=== PATIENT | male | born 1935 | race Caucasian/White ===

== ENCOUNTER 2019-06-02 18:04 | Emergency (ER) | payer MEDICARE, OTHER ==
[~2019-06-02] VITALS: Ht 182.9 cm; Wt 85.3 kg
[~2019-06-02 18:04] MED LIST: ASPI81EC; ASPI81EC PO; CALCAVITD PO; CETI5 PO; ERGO400 PO; EZET10; EZET10 PO; FELO2.5 PO; FISH1000 PO; Felodipine ER2.5 MG PO; GLUC500 PO; HYDACE5 PO; HYDCHL25 PO; Hytrin1 MG PO; LISHYD1012 PO; MULTI VITAMIN1 EACH PO; NADO20; NAPR550 PO; NEBI5 PO; NIAC500ER; NIAC500ER PO; NITR.4SL SL; Niacin PO; OMEP40CA12 PO; TERA5; TERA5 PO; WARF5 PO; WARF6; WARF6 PO; [UNRECOGNIZED DRUG - CODE] PO; [UNRECOGNIZED DRUG - OTHER] PO; [UNRECOGNIZED DRUG - OTHER] PO
[2019-06-02 18:49] LABS: BASOPHILS ABSOLUTE AUTO 0.07 K/mm3 (0.00-0.23); BASOPHILS PERCENT AUTO 1 % (0-2); EOSINOPHILS ABSOLUTE AUTO 0.14 K/mm3 (0.00-0.68); EOSINOPHILS PERCENT AUTO 2 % (0-6); Hematocrit 45.1 % (37.0-53.0); Hemoglobin 14.6 g/dL (13.5-17.5); IMMATURE GRAN ABSOLUTE AUTO 0.01 K/mm3 (0.00-0.10); IMMATURE GRAN PERCENT AUTO 0 % (0-1); LYMPHOCYTES ABSOLUTE AUTO 1.59 K/mm3 (0.84-5.20); LYMPHOCYTES PERCENT AUTO 25 % (21-46); MONOCYTES ABSOLUTE AUTO 0.82 K/mm3 (0.16-1.47); MONOCYTES PERCENT AUTO 13 % (4-13); Mean Corpuscular HGB 31.6 pg (26.0-34.0); Mean Corpuscular HGB Conc 32.4 g/dL (31.5-36.5); Mean Corpuscular Volume 98 fL (80-100); Mean Platelet Volume 11.5 fL (9.1-12.4); NEUTROPHILS ABSOLUTE AUTO 3.71 K/mm3 (1.96-9.15); NEUTROPHILS PERCENT AUTO 59 % (41-73); Platelet Count 159 K/mm3 (150-400); RDW Coefficient Variation 13.5 % (11.7-14.2); RDW Standard Deviation 49.2 fL (35.1-46.3); Red Blood Cell Count 4.62 M/mm3 (4.30-5.90); White Blood Cell Count 6.34 K/mm3 (4.00-11.30)
[2019-06-02 19:19] LABS: Anion Gap 6 mmol/L (6-16); Blood Urea Nitrogen 20 mg/dL (8-24); Bun/Creatinine Ratio 20.3 (12.0-20.0); CO2, Blood 26 mmol/L (21-32); Calcium, Blood 8.3 mg/dL (8.5-10.1); Chloride, Blood 107 mmol/L (98-108); Creatinine, Blood 0.99 mg/dL (0.60-1.20); Glomerular Filtration Rate >60 (60-); Glucose, Blood 164 mg/dL (70-99); Potassium, Blood 3.8 mmol/L (3.5-5.5); Sodium, Blood 139 mmol/L (136-145); Troponin I <0.015 ng/mL (0.000-0.040)
== END 2019-06-02 22:14 | disposition home or self-care (01) ==
LOC: ER 18:04
PROVIDERS: Physician Assistant
DX: R07.9 Chest pain, unspecified (principal); Z88.8 Allergy status to other drugs, medicaments and biological substances; Z79.899 Other long term (current) drug therapy; Z79.01 Long term (current) use of anticoagulants; I10 Essential (primary) hypertension; I48.91 Unspecified atrial fibrillation; Z87.891 Personal history of nicotine dependence
CPT/HCPCS: 36415; 71046; 71275; 80048; 84484; 85025; 93005; 93010; 99285-25; Q9967

== ENCOUNTER 2020-06-19 16:05 | Emergency (ER) | payer MEDICARE, OTHER ==
[~2020-06-19] VITALS: Ht 180.3 cm; Wt 87.1 kg
[2020-06-19 16:45] LABS: BASOPHILS ABSOLUTE AUTO 0.08 K/mm3 (0.00-0.23); BASOPHILS PERCENT AUTO 1 % (0-2); EOSINOPHILS ABSOLUTE AUTO 0.13 K/mm3 (0.00-0.68); EOSINOPHILS PERCENT AUTO 2 % (0-6); Hematocrit 48.7 % (37.0-53.0); Hemoglobin 15.7 g/dL (13.5-17.5); IMMATURE GRAN ABSOLUTE AUTO 0.01 K/mm3 (0.00-0.10); IMMATURE GRAN PERCENT AUTO 0 % (0-1); LYMPHOCYTES ABSOLUTE AUTO 1.74 K/mm3 (0.84-5.20); LYMPHOCYTES PERCENT AUTO 21 % (21-46); MONOCYTES ABSOLUTE AUTO 1.21 K/mm3 (0.16-1.47); MONOCYTES PERCENT AUTO 15 % (4-13); Mean Corpuscular HGB 31.3 pg (26.0-34.0); Mean Corpuscular HGB Conc 32.2 g/dL (31.5-36.5); Mean Corpuscular Volume 97 fL (80-100); Mean Platelet Volume 10.6 fL (9.1-12.4); NEUTROPHILS ABSOLUTE AUTO 5.12 K/mm3 (1.96-9.15); NEUTROPHILS PERCENT AUTO 62 % (41-73); Platelet Count 180 K/mm3 (150-400); RDW Coefficient Variation 14.3 % (11.7-14.2); RDW Standard Deviation 51.2 fL (35.1-46.3); Red Blood Cell Count 5.01 M/mm3 (4.30-5.90); White Blood Cell Count 8.29 K/mm3 (4.00-11.30)
[2020-06-19 16:58] LABS: Alanine Aminotransfer (ALT/SGP 23 U/L (12-78); Albumin, Blood 4.4 g/dL (3.4-5.0); Albumin/Globulin Ratio 1.1 (0.8-1.8); Alk Phos 61 U/L (50-136); Anion Gap 6 mmol/L (6-16); Aspartate Aminotrans (AST/SGOT 18 U/L (12-37); Bilirubin, Total 0.9 mg/dL (0.1-1.0); Blood Urea Nitrogen 13 mg/dL (8-24); Bun/Creatinine Ratio 14.3 (12.0-20.0); CO2, Blood 27 mmol/L (21-32); Calcium, Blood 8.8 mg/dL (8.5-10.1); Chloride, Blood 106 mmol/L (98-108); Creatinine, Blood 0.91 mg/dL (0.60-1.20); Globulin, Blood 3.9 g/dL (2.2-4.0); Glomerular Filtration Rate >60 (60-); Glucose, Blood 130 mg/dL (70-99); Potassium, Blood 3.3 mmol/L (3.5-5.5); Sodium, Blood 139 mmol/L (136-145); Total Protein, Blood 8.3 g/dL (6.4-8.2); Troponin I <0.015 ng/mL (0.000-0.040)
[2020-06-19] MEDS ORDERED: Aspir 8181 MG PO (18:36)
[2020-06-19] MEDS ORDERED: METO25ER PO (18:37)
[2020-06-19] MEDS ORDERED: PANT40 PO (18:38)
[2020-06-19 20:12] LABS: Magnesium, Blood 2.6 mg/dL (1.6-2.4); Troponin I <0.015 ng/mL (0.000-0.040)
== END 2020-06-19 22:00 | disposition home or self-care (01) ==
LOC: ER 16:05
PROVIDERS: Emergency Medicine; Physician Assistant
DX: R07.0 Pain in throat (principal); I10 Essential (primary) hypertension; I48.91 Unspecified atrial fibrillation; E78.00 Pure hypercholesterolemia, unspecified; I25.810 Atherosclerosis of coronary artery bypass graft(s) without angina pectoris; Z79.01 Long term (current) use of anticoagulants; Z79.899 Other long term (current) drug therapy; Z88.6 Allergy status to analgesic agent; Z88.8 Allergy status to other drugs, medicaments and biological substances; Z95.1 Presence of aortocoronary bypass graft; Z87.891 Personal history of nicotine dependence; Z95.0 Presence of cardiac pacemaker
CPT/HCPCS: 36415; 71046; 74177; 80053; 83690; 83735; 84484; 85025; 93005; 93010; 96374; 99284-25; A9270; Q9967

== ENCOUNTER 2020-08-16 16:56 | Emergency (ER) | payer MEDICARE, OTHER ==
[~2020-08-16] VITALS: Ht 180.3 cm; Wt 84.4 kg
[~2020-08-16 16:56] MED LIST changes: +Aspir 8181 MG PO; +METO25ER PO; +PANT40 PO
[2020-08-16 17:38] LABS: BASOPHILS ABSOLUTE AUTO 0.08 K/mm3 (0.00-0.23); BASOPHILS PERCENT AUTO 1 % (0-2); EOSINOPHILS ABSOLUTE AUTO 0.18 K/mm3 (0.00-0.68); EOSINOPHILS PERCENT AUTO 2 % (0-6); Hematocrit 46.1 % (37.0-53.0); IMMATURE GRAN ABSOLUTE AUTO 0.02 K/mm3 (0.00-0.10); IMMATURE GRAN PERCENT AUTO 0 % (0-1); LYMPHOCYTES ABSOLUTE AUTO 1.78 K/mm3 (0.84-5.20); LYMPHOCYTES PERCENT AUTO 23 % (21-46); MONOCYTES ABSOLUTE AUTO 0.99 K/mm3 (0.16-1.47); MONOCYTES PERCENT AUTO 13 % (4-13); Mean Corpuscular HGB 31.1 pg (26.0-34.0); Mean Corpuscular HGB Conc 32.5 g/dL (31.5-36.5); Mean Corpuscular Volume 96 fL (80-100); Mean Platelet Volume 11.3 fL (9.1-12.4); NEUTROPHILS PERCENT AUTO 61 % (41-73); Platelet Count 151 K/mm3 (150-400); RDW Coefficient Variation 14.4 % (11.7-14.2); RDW Standard Deviation 50.6 fL (35.1-46.3); Red Blood Cell Count 4.82 M/mm3 (4.30-5.90); White Blood Cell Count 7.75 K/mm3 (4.00-11.30)
[2020-08-16 17:58] LABS: Alanine Aminotransfer (ALT/SGP 25 U/L (12-78); Albumin, Blood 4.3 g/dL (3.4-5.0); Albumin/Globulin Ratio 1.2 (0.8-1.8); Alk Phos 56 U/L (50-136); Anion Gap 5 mmol/L (6-16); Aspartate Aminotrans (AST/SGOT 25 U/L (12-37); Bilirubin, Total 0.9 mg/dL (0.1-1.0); Blood Urea Nitrogen 20 mg/dL (8-24); Bun/Creatinine Ratio 18.7 (12.0-20.0); CO2, Blood 29 mmol/L (21-32); Calcium, Blood 8.7 mg/dL (8.5-10.1); Chloride, Blood 108 mmol/L (98-108); Creatinine, Blood 1.07 mg/dL (0.60-1.20); Globulin, Blood 3.7 g/dL (2.2-4.0); Glomerular Filtration Rate >60 (60-); Glucose, Blood 122 mg/dL (70-99); Potassium, Blood 3.5 mmol/L (3.5-5.5); Sodium, Blood 142 mmol/L (136-145)
[2020-08-16 17:59] LABS: Troponin I <0.015 ng/mL (0.000-0.040)
== END 2020-08-16 19:21 | disposition home or self-care (01) ==
LOC: ER 16:56
PROVIDERS: Physician Assistant
DX: R07.89 Other chest pain (principal); I10 Essential (primary) hypertension; E78.00 Pure hypercholesterolemia, unspecified; I25.810 Atherosclerosis of coronary artery bypass graft(s) without angina pectoris; Z79.01 Long term (current) use of anticoagulants; Z79.82 Long term (current) use of aspirin; Z79.899 Other long term (current) drug therapy; Z88.6 Allergy status to analgesic agent; Z88.8 Allergy status to other drugs, medicaments and biological substances; Z95.1 Presence of aortocoronary bypass graft; Z87.891 Personal history of nicotine dependence
CPT/HCPCS: 36415; 71045; 80053; 84484; 85025; 93005; 93010; 99285-25

== ENCOUNTER 2021-11-20 07:53 | Emergency (ER) | payer MEDICARE, OTHER ==
[~2021-11-20] VITALS: Ht 177.8 cm; Wt 84.8 kg
== END 2021-11-20 08:26 | disposition home or self-care (01) ==
LOC: ER 07:53
DX: S00.412A Abrasion of left ear, initial encounter (principal); I10 Essential (primary) hypertension; I25.10 Atherosclerotic heart disease of native coronary artery without angina pectoris; W22.8XXA Striking against or struck by other objects, initial encounter; Z88.8 Allergy status to other drugs, medicaments and biological substances; Z79.01 Long term (current) use of anticoagulants; Z79.82 Long term (current) use of aspirin; Z79.899 Other long term (current) drug therapy; Z95.1 Presence of aortocoronary bypass graft; Z95.0 Presence of cardiac pacemaker
CPT/HCPCS: A9270

== ENCOUNTER 2021-12-20 07:10 | Emergency (ER) | payer MEDICARE, OTHER ==
[~2021-12-20] VITALS: Ht 177.8 cm; Wt 84.8 kg
[2021-12-20] MEDS ORDERED: AMOCLA875 PO (10:33)
== END 2021-12-20 10:41 | disposition home or self-care (01) ==
LOC: ER 07:10
DX: H66.92 Otitis media, unspecified, left ear (principal); T16.1XXA Foreign body in right ear, initial encounter; I10 Essential (primary) hypertension; I48.91 Unspecified atrial fibrillation; I25.10 Atherosclerotic heart disease of native coronary artery without angina pectoris; Z95.1 Presence of aortocoronary bypass graft; Z95.0 Presence of cardiac pacemaker; Z79.899 Other long term (current) drug therapy; Z79.01 Long term (current) use of anticoagulants; Z88.6 Allergy status to analgesic agent; Z88.8 Allergy status to other drugs, medicaments and biological substances; Z79.82 Long term (current) use of aspirin; Z97.4 Presence of external hearing-aid
CPT/HCPCS: 99282

== ENCOUNTER → 2022-01-01 | Outpatient (CLI) | payer MEDICARE, OTHER ==
[~2022-01-01] MED LIST changes: +AMOCLA875 PO
== END | disposition home or self-care (01) ==
LOC: LAB SHORT 17:28 → LAB 17:28
DX: H92.12 Otorrhea, left ear (principal)
CPT/HCPCS: 87070; 87077; 87147; 87186; 87205

== ENCOUNTER 2022-02-06 10:49 | Observation (INO) | payer MEDICARE, OTHER ==
[~2022-02-06] VITALS: Ht 177.8 cm; Wt 84.4 kg
[2022-02-06 11:27] LABS: BASOPHILS ABSOLUTE AUTO 0.04 K/mm3 (0.00-0.23); BASOPHILS PERCENT AUTO 1 % (0-2); EOSINOPHILS PERCENT AUTO 3 % (0-6); Hematocrit 44.1 % (37.0-53.0); Hemoglobin 14.6 g/dL (13.5-17.5); IMMATURE GRAN ABSOLUTE AUTO 0.02 K/mm3 (0.00-0.10); IMMATURE GRAN PERCENT AUTO 0 % (0-1); LYMPHOCYTES ABSOLUTE AUTO 1.27 K/mm3 (0.84-5.20); LYMPHOCYTES PERCENT AUTO 19 % (21-46); MONOCYTES ABSOLUTE AUTO 0.93 K/mm3 (0.16-1.47); MONOCYTES PERCENT AUTO 14 % (4-13); Mean Corpuscular HGB Conc 33.1 g/dL (31.5-36.5); Mean Corpuscular Volume 97 fL (80-100); Mean Platelet Volume 11.3 fL (9.1-12.4); NEUTROPHILS ABSOLUTE AUTO 4.35 K/mm3 (1.96-9.15); NEUTROPHILS PERCENT AUTO 64 % (41-73); Platelet Count 149 K/mm3 (150-400); RDW Standard Deviation 50.2 fL (35.1-46.3); Red Blood Cell Count 4.56 M/mm3 (4.30-5.90); White Blood Cell Count 6.81 K/mm3 (4.00-11.30)
[2022-02-06 11:43] LABS: International Normalized Ratio 2.68; Prothrombin Time Results 26.4 Sec (9.7-11.5)
[2022-02-06 11:51] LABS: Bilirubin, Total 1.4 mg/dL (0.1-1.0); Bun/Creatinine Ratio 20.8 (12.0-20.0); Calcium, Blood 8.6 mg/dL (8.5-10.1); Creatinine, Blood 1.06 mg/dL (0.60-1.20); Potassium, Blood 3.8 mmol/L (3.5-5.5)
--- NOTE | 2022-02-06 17:53 | NUR ---
PT ARRIVED TO ROOM AT 1625 TO ROOM. AOX4 AND INDEPENDENT. PT SETTLED INTO ROOM AND CALL LIGHT PLACED WITHIN REACH. WILL CONTINUE TO MONITOR.
[2022-02-06] MEDS ORDERED: CALCIUM 600 MG1 EA18 PO (18:09)
[2022-02-06] MEDS ORDERED: VITAMIN D33000 UNIT PO (18:10)
[2022-02-06] MEDS ORDERED: RANO500T PO (18:12)
[2022-02-06] MEDS ORDERED: Isosorbide Mono30 MG PO (18:12)
--- NOTE | 2022-02-06 18:45 | NUR ---
PATIENT A&OX4. UP WITH SBA AND NO DEVICE NEEDED TO AMBULATE TO BATHROOM AND BACK TO BED. DENIES CP/CHEST DISCOMFORT AT THIS TIME. BED IN LOWEST POSITION, LOCKED AND CALL LIGHT WITHIN REACH.
--- NOTE | 2022-02-06 19:16 | NUR ---
REVIEWED ALL NOTES AND ASSESSMENTS BY EVANS PADILLA AND AGREE WITH THEM.
--- NOTE | 2022-02-07 04:58 | NUR ---
SHIFT SUMMARY NO ACUTE CHANGES TO PT CONDITION. PT HAS HAD NO COMPLAINTS ON THIS SHIFT. PT SLEPT MUCH OF THE NIGHT. CALL LIGHT IS WITH HIS REACH.
[2022-02-07 06:35] LABS: International Normalized Ratio 2.29; Prothrombin Time Results 22.8 Sec (9.7-11.5)
--- NOTE | 2022-02-07 07:52 | NUR ---
PATIENT A&OX4. PLEASANT AND COOPERATIVE WITH CARE. DENIES CP/CHEST DISCOMFORT THIS TIME. ON TELE, V-PACED @ 70. AM VITALS SIGNS REVIEWED. DR. DENNEY WAS IN ROOM @ 0715 FOR CARDIOLOGY CONSULT, PLAN TO HAVE AN ANGIOGRAM THIS AM. PATIENT IS NPO AT THIS TIME.
[2022-02-07] MEDS ORDERED: Lisinopril-Hct1 EAC4 PO (15:12)
--- NOTE | 2022-02-07 15:51 | NUR ---
PATIENT A&OX4. PLEASANT AND COOPERATIVE WITH CARE. AMBULATES IN ROOM INDEPENDENTLY. PATIENT DENIES CP/CHEST DISCOMFORT THIS SHIFT. PATIENT D/C HOME. DISCHARGED INSTRUCTION PACKET GIVEN TO PATIENT. EDUCATE PATIENT REGARDING DX, S/S, TREATMENT AND PRESCRIBED MEDICATIONS. PATIENT STATED UNDERSTANDING AND NO FURTHER QUESTIONS. PATIENT REQUEST NOT TO SEND RX PRESCRIPTION TO PREFFERED PHARMACY DUE TO HAVE NO CHANGES TO HIS MEDICATIONS REGIMEN. PATIENT PERSONAL BELONGINGS WERE SENT HOME WITH PATIENT. PATIENT LEFT THE ROOM AT 1535 AND WAS TRANSPORTED VIA WHEELCHAIR BY [facility] TO SPOUSE PRIVATE VEHICLE.
[2022-02-11] MEDS ORDERED: WARF4 PO (06:30)
== END 2022-02-07 15:36 | disposition home or self-care (01) ==
LOC: ER 10:49 → MEDS 10:50 → ER 16:25 → MEDS 16:30
PROVIDERS: Nurse Practitioner Acute Care; Physician Assistant; Student in an Organized Health Care Education/Training Program; ADMIT Family Medicine
DX: I25.110 Atherosclerotic heart disease of native coronary artery with unstable angina pectoris (principal); I10 Essential (primary) hypertension; I48.19 Other persistent atrial fibrillation; I71.2 Thoracic aortic aneurysm, without rupture; E78.5 Hyperlipidemia, unspecified; G47.33 Obstructive sleep apnea (adult) (pediatric); K74.60 Unspecified cirrhosis of liver; D69.6 Thrombocytopenia, unspecified; Z95.1 Presence of aortocoronary bypass graft; Z66 Do not resuscitate; Z95.0 Presence of cardiac pacemaker; Z88.0 Allergy status to penicillin; Z88.8 Allergy status to other drugs, medicaments and biological substances; Z79.01 Long term (current) use of anticoagulants; Z79.82 Long term (current) use of aspirin; Z79.899 Other long term (current) drug therapy
CPT/HCPCS: 36415; 71045; 80053; 83880; 84484; 85025; 85610; 85651; 86140; 93005; 93010; 94762; 99285-25; A9270; C8929; G0378; Q9957

== ENCOUNTER → 2023-03-13 | Outpatient (CLI) | payer MEDICARE, OTHER ==
[~2023-03-13] MED LIST changes: +CALCIUM 600 MG1 EA18 PO; +Isosorbide Mono30 MG PO; +Lisinopril-Hct1 EAC4 PO; +RANO500T PO; +VITAMIN D33000 UNIT PO; +WARF4 PO
[2023-03-13 15:15] LABS: Stool Occult Blood Guaiac 1 Neg (Neg)
[2023-03-13 15:16] LABS: Stool Occult Blood Guaiac 2 Neg (Neg); Stool Occult Blood Guaiac 3 Neg (Neg)
== END | disposition home or self-care (01) ==
LOC: LAB SHORT 08:00 → LAB 08:00 → LAB FUT 03-11 11:15
PROVIDERS: Internal Medicine
DX: D64.9 Anemia, unspecified (principal); I48.0 Paroxysmal atrial fibrillation
CPT/HCPCS: 82272

== ENCOUNTER 2023-05-25 18:23 | Emergency (ER) | payer MEDICARE, OTHER ==
[~2023-05-25] VITALS: Ht 177.8 cm; Wt 83.9 kg
[2023-05-25 19:19] VITALS: BP 158/84
== END 2023-05-25 20:21 | disposition home or self-care (01) ==
LOC: ER 18:23
DX: R04.0 Epistaxis (principal); I10 Essential (primary) hypertension; Z88.6 Allergy status to analgesic agent; Z88.8 Allergy status to other drugs, medicaments and biological substances; Z79.82 Long term (current) use of aspirin; Z79.899 Other long term (current) drug therapy; Z79.01 Long term (current) use of anticoagulants; Z95.0 Presence of cardiac pacemaker; Z95.1 Presence of aortocoronary bypass graft
CPT/HCPCS: 99283; A9270

== ENCOUNTER 2024-04-19 22:27 | Emergency (ER) | payer MEDICARE, OTHER ==
[~2024-04-19] VITALS: Ht 177.8 cm; Wt 81.2 kg
[~2024-04-19 22:27] MED LIST changes: +CLOP75 PO
[2024-04-19 22:53] VITALS: BP 152/99
== END 2024-04-20 00:02 | disposition home or self-care (01) ==
LOC: ER 22:27
DX: R04.0 Epistaxis (principal); I10 Essential (primary) hypertension; I48.91 Unspecified atrial fibrillation; Z95.0 Presence of cardiac pacemaker; Z95.1 Presence of aortocoronary bypass graft; Z88.6 Allergy status to analgesic agent; Z88.8 Allergy status to other drugs, medicaments and biological substances; Z79.899 Other long term (current) drug therapy; Z79.01 Long term (current) use of anticoagulants; Z79.02 Long term (current) use of antithrombotics/antiplatelets
CPT/HCPCS: 99282

== ENCOUNTER 2024-06-23 05:01 | Day surgery (SDC) | payer MEDICARE, OTHER ==
[2024-06-23 08:29] VITALS: BP 164/94
[2024-06-23] MEDS ORDERED: B-COMPLEX WITH1 EAC2 PO (08:36)
== END 2024-06-23 08:55 | disposition home or self-care (01) ==
LOC: ATC 05:01
DX: N40.0 Benign prostatic hyperplasia without lower urinary tract symptoms (principal); E78.5 Hyperlipidemia, unspecified; I25.10 Atherosclerotic heart disease of native coronary artery without angina pectoris; I48.91 Unspecified atrial fibrillation; E55.9 Vitamin D deficiency, unspecified; K21.9 Gastro-esophageal reflux disease without esophagitis; G47.33 Obstructive sleep apnea (adult) (pediatric)
CPT/HCPCS: 51798

== ENCOUNTER 2024-07-12 09:30 | Emergency (ER) | payer MEDICARE, OTHER ==
[~2024-07-12] VITALS: Ht 177.8 cm; Wt 81.7 kg
[~2024-07-12 09:30] MED LIST changes: +B-COMPLEX WITH1 EAC2 PO
[2024-07-12 10:21] VITALS: BP 170/79
[2024-07-12] MEDS ORDERED: Percocet 5-3251 EACH PO (11:58)
== END 2024-07-12 12:14 | disposition home or self-care (01) ==
LOC: ER 09:30
DX: I48.0 Paroxysmal atrial fibrillation (principal); I48.20 Chronic atrial fibrillation, unspecified; I10 Essential (primary) hypertension; Z88.8 Allergy status to other drugs, medicaments and biological substances; Z88.1 Allergy status to other antibiotic agents; Z88.6 Allergy status to analgesic agent; Z79.01 Long term (current) use of anticoagulants; Z79.2 Long term (current) use of antibiotics; Z79.899 Other long term (current) drug therapy; Z79.02 Long term (current) use of antithrombotics/antiplatelets; Z87.891 Personal history of nicotine dependence
CPT/HCPCS: 36416; 73030; 85610; 99283-25

== ENCOUNTER 2024-12-14 17:36 | Emergency (ER) | payer MEDICARE, OTHER ==
[~2024-12-14] VITALS: Ht 177.8 cm; Wt 81.7 kg
[~2024-12-14 17:36] MED LIST changes: +Percocet 5-3251 EACH PO
[2024-12-14 17:59] VITALS: BP 200/94
[2024-12-14] MEDS ORDERED: Tranexamic Acid 100 ML IV ONE (18:35)
[2024-12-14] MEDS ORDERED: Tranexamic Acid 1000 MG/10 ML 10ML Vial (SDV) TOP ONE ×2 (18:35→18:40)
[2024-12-14] MEDS ORDERED: Neomycin/Polymyxin/Hydrocort Otic 10 ml LEFTEAR ONE (20:10)
== END 2024-12-14 20:46 | disposition home or self-care (01) ==
LOC: ER 17:36
DX: K91.840 Postprocedural hemorrhage of a digestive system organ or structure following a digestive system procedure (principal); H60.92 Unspecified otitis externa, left ear; I10 Essential (primary) hypertension; I48.91 Unspecified atrial fibrillation; K74.60 Unspecified cirrhosis of liver; Z97.4 Presence of external hearing-aid; Z95.0 Presence of cardiac pacemaker; Z87.891 Personal history of nicotine dependence; Z95.1 Presence of aortocoronary bypass graft; Z88.8 Allergy status to other drugs, medicaments and biological substances; Z88.6 Allergy status to analgesic agent; Z79.01 Long term (current) use of anticoagulants; Z79.899 Other long term (current) drug therapy
CPT/HCPCS: 96374; 99282-25; A9270

== ENCOUNTER 2025-05-02 02:29 | Day surgery (SDC) | payer MEDICARE, OTHER ==
[2025-05-02] MEDS ORDERED: Lidocaine HCl 4% Cream 5 GM ONE (08:18)
== END 2025-05-02 23:55 | disposition home or self-care (01) ==
LOC: WOUND 02:29
DX: T82.837A Hemorrhage due to cardiac prosthetic devices, implants and grafts, initial encounter (principal); I10 Essential (primary) hypertension; I48.91 Unspecified atrial fibrillation; I73.9 Peripheral vascular disease, unspecified; Z79.01 Long term (current) use of anticoagulants; Z87.891 Personal history of nicotine dependence; Z88.6 Allergy status to analgesic agent; Z88.8 Allergy status to other drugs, medicaments and biological substances; Z90.49 Acquired absence of other specified parts of digestive tract
CPT/HCPCS: 10140; A9270; G0463

== ENCOUNTER 2025-05-09 00:12 | Day surgery (SDC) | payer MEDICARE, OTHER ==
[2025-05-09] MEDS ORDERED: Lidocaine HCl 4% Cream 5 GM ONE (08:59)
== END 2025-05-09 23:00 | disposition home or self-care (01) ==
LOC: WOUND 00:12
DX: T82.837A Hemorrhage due to cardiac prosthetic devices, implants and grafts, initial encounter (principal)
CPT/HCPCS: 10140; A9270

== ENCOUNTER → 2025-05-23 | Day surgery (SDC) | payer MEDICARE, OTHER ==
[~2025-05-23] MED LIST changes: +Lidocaine HCl 4% Cream 5 GM ONE
== END ==
LOC: WOUND 11:17
DX: T82.837D Hemorrhage due to cardiac prosthetic devices, implants and grafts, subsequent encounter (principal)
CPT/HCPCS: A9270; G0463